=== PATIENT | male | born 1955 | race Caucasian/White ===

== ENCOUNTER → 2024-08-26 12:26 | Outpatient (REF) | payer MEDICARE, OTHER, SELFPAY | LOC: HWRAD 12:26 | PROVIDERS: ATTENDING PHYSICIAN Nurse Practitioner Family | DX: R42 Dizziness and giddiness (principal) | CPT/HCPCS: 70450 ==

== ENCOUNTER 2024-11-02 05:38 | Emergency (ER) | payer MEDICARE, OTHER, SELFPAY ==
[2024-11-02 05:46] VITALS: BP 156/106
[2024-11-02 05:57] VITALS: BP 151/78
--- NOTE | 2024-11-02 06:10 | PTCARENOTE ---
Dr. Roberts at bedside
--- NOTE | 2024-11-02 06:19 | PTCARENOTE ---
Dr. Roberts at bedside, mackenzie catheter placed
--- NOTE | 2024-11-02 06:22 | CON.MD ---
Consultation - Medical
-
see dictated note
pt underwent urolift yesterday- now with AUR
20 [place] coude cath placed- 700cc clear urine drained
home with mackenzie- call office monday to schedule removal and TOV
--- NOTE | 2024-11-02 07:00 | ED.GENMED ---
History of Present Illness
General
Chief Complaint: Male Genito-Urinary Symptoms
Source: patient
Exam Limitations: none
Time Seen by Provider: 11/02/24 06:55
History of Present Illness
History of Present Illness:
69-year-old male presents with inability urinate starting about 5 hours prior to my exam. He had a UroLift procedure performed yesterday. He noted lower abdominal discomfort starting this morning. He has already been seen by urology. Urology has
placed the catheter. He is feeling much better. No other complaints at this time
Phy Exam
Physical Exam
Physical Exam:
General: Well-appearing male no acute respiratory distress
HEENT: Normocephalic atraumatic
Extremities: No cyanosis or edema
exam: Now with Sullivan catheter urine is pink-tinged
Course
Orders/Labs/Results
Orders:
Orders
11/02/24 06:21
Catheter- Indwelling As Directed
Reason for insertion: Urology Determination
Comment: placed by MD
Nursing to Place Non Medication Order As Directed
Physician Order: Sullivan to leg bag and leg bag teaching
11/02/24 06:22
Discharge Patient As Directed
Vital Signs
Initial and Last Documented VS:
Initial Vital Signs
Temp Pulse Resp Pulse Ox
98.4 F 118 20 98
11/02/24 05:41 11/02/24 05:41 11/02/24 05:41 11/02/24 05:41
Last Documented Vital Signs
Temp Pulse Resp BP Pulse Ox
97.9 F 99 13 151/78 99
11/02/24 06:00 11/02/24 06:00 11/02/24 06:00 11/02/24 05:57 11/02/24 06:00
MDM/Problems Addressed
Differential Diagnosis Includes:
Patient with urinary retention shortly following a UroLift procedure performed yesterday. Already seen by urology. Feeling much better. Will plan on discharging with follow-up with urology with catheter in place
*Critical Care Note
Total Time (30-74mins, 75-104mins- exclusive of procedures): Not Applicable
ED Attending Note
-
Portions of this chart may have been created with voice recognition software.� Occasional wrong word or��sound alike� substitutions may have occurred due to the inherent limitations of voice recognition software.
Discharge Plan
Departure
Patient Disposition: Home (Routine Discharge)
Date of Disposition: 11/02/24
Time of Disposition: 07:02
Patient with high blood pressure during this ER visit?: No
Discharge Problem:
Acute urinary retention
Instructions: How to Care for Your Sullivan Catheter, Male, Urinary Retention (DC)
Referrals:
Thu Suarez CRNP [Family Provider] -
Activity Restrictions/Additional Instructions:
Please return here if needed. Follow-up with urology as planned
Interventions
Interventions:
*Risk Screen - Suicide Last Done: 11/02/24 05:41
*General Assessment Last Done: 11/02/24 06:26
*Neglect/Abuse Screening Last Done: 11/02/24 06:26
ED- Fall Risk Assessment Last Done: 11/02/24 06:22
*ED COVID-19 Vaccine History Last Done: 11/02/24 06:21
ED-Male Genitourinary Assessment Last Done: 11/02/24 06:08
Discharge Date and Time
Print Language: BOLIVIAN
== END 2024-11-02 08:10 | disposition home or self-care (01) ==
LOC: EMR 05:38
PROVIDERS: EMERGENCY PHYSICIAN Student in an Organized Health Care Education/Training Program; FAMILY PHYSICIAN Nurse Practitioner Family; OTHER PHYSICIAN Specialist
DX: R33.9 Retention of urine, unspecified (principal); R10.9 Unspecified abdominal pain; Z98.890 Other specified postprocedural states
CPT/HCPCS: 99284; 51702

== ENCOUNTER 2025-07-15 06:19 | Day surgery (SDC) | payer MEDICARE, OTHER, SELFPAY | END 2025-07-15 09:43 | disposition home or self-care (01) | LOC: GI 06:19 | PROVIDERS: ATTENDING PHYSICIAN Surgery | DX: Z12.11 Encounter for screening for malignant neoplasm of colon (principal); K57.30 Diverticulosis of large intestine without perforation or abscess without bleeding; K63.5 Polyp of colon | CPT/HCPCS: 45380; 88305 ==